=== PATIENT | female | born 1950 | race Native Hawaiian/Other Pacific Islander ===

== ENCOUNTER 2018-01-08 14:09 | Outpatient (CLI) | payer OTHER ==
[~2018-01-08] VITALS: Ht 149.9 cm; Wt 67.1 kg
== END 2018-01-08 19:51 | disposition home or self-care (01) ==
LOC: INF 14:09
DX: M85.80 Other specified disorders of bone density and structure, unspecified site (principal)
CPT/HCPCS: 36415; 82310; 96372; J0897

== ENCOUNTER 2018-08-05 09:28 | Outpatient (CLI) | payer OTHER ==
[~2018-08-05] VITALS: Ht 149.9 cm; Wt 65.3 kg
[2018-08-05 09:45] VITALS: BP 122/68; TEMP 98.2
== END 2018-08-05 11:25 | disposition home or self-care (01) ==
LOC: INF 09:28
DX: M85.80 Other specified disorders of bone density and structure, unspecified site (principal)
CPT/HCPCS: 36415; 82310; 96372; J0897

== ENCOUNTER 2018-12-07 09:26 | Outpatient (CLI) | payer OTHER | END 2018-12-07 20:10 | disposition home or self-care (01) | LOC: US 09:26 | DX: R42 Dizziness and giddiness (principal); R55 Syncope and collapse ==

== ENCOUNTER 2019-04-07 07:59 | Outpatient (CLI) | payer OTHER | END 2019-04-07 19:40 | disposition home or self-care (01) | LOC: RAD 07:59 | DX: M79.672 Pain in left foot (principal); S92.345A Nondisplaced fracture of fourth metatarsal bone, left foot, initial encounter for closed fracture; S92.355D Nondisplaced fracture of fifth metatarsal bone, left foot, subsequent encounter for fracture with routine healing; M85.872 Other specified disorders of bone density and structure, left ankle and foot ==

== ENCOUNTER 2019-04-12 08:17 | Outpatient (CLI) | payer OTHER ==
[~2019-04-12] VITALS: Ht 149.9 cm; Wt 65.3 kg
[2019-04-12 08:45] VITALS: BP 130/70; TEMP 98
== END 2019-04-12 12:02 | disposition home or self-care (01) ==
LOC: INF 08:17
DX: M85.80 Other specified disorders of bone density and structure, unspecified site (principal)
CPT/HCPCS: 36415; 82310; 96372; J0897

== ENCOUNTER 2019-05-10 10:52 | Outpatient (CLI) | payer OTHER | END 2019-05-10 19:18 | disposition home or self-care (01) | LOC: CT 10:52 | DX: K44.9 Diaphragmatic hernia without obstruction or gangrene (principal) ==

== ENCOUNTER 2019-10-24 08:31 | Outpatient (CLI) | payer OTHER ==
[~2019-10-24] VITALS: Ht 149.9 cm; Wt 65.3 kg
== END 2019-10-24 09:56 | disposition home or self-care (01) ==
LOC: INF 08:31
DX: M81.0 Age-related osteoporosis without current pathological fracture (principal); M85.80 Other specified disorders of bone density and structure, unspecified site
CPT/HCPCS: 36415; 82310; 96372; J0897

== ENCOUNTER 2020-06-08 09:17 | Outpatient (CLI) | payer OTHER | END 2020-06-08 19:50 | disposition home or self-care (01) | LOC: MRI 09:17 | PROVIDERS: ATTEND Psychiatry & Neurology Neurology | DX: H93.19 Tinnitus, unspecified ear (principal); R90.82 White matter disease, unspecified | CPT/HCPCS: 36415; 82565; 84520 ==

== ENCOUNTER 2020-08-09 10:00 | Outpatient (CLI) | payer OTHER ==
[~2020-08-09] VITALS: Ht 149.9 cm; Wt 65.3 kg
[2020-08-09 11:03] VITALS: BP 122/65; TEMP 97.9
== END 2020-08-09 22:43 | disposition home or self-care (01) ==
LOC: INF 10:00
PROVIDERS: ATTEND Internal Medicine Endocrinology, Diabetes & Metabolism
DX: M81.0 Age-related osteoporosis without current pathological fracture (principal); M85.80 Other specified disorders of bone density and structure, unspecified site
CPT/HCPCS: 36415; 82310; 96372; J0897